=== PATIENT | female | born 1955 | race Caucasian/White ===

== ENCOUNTER → 2016-09-12 | Outpatient (CLI) | payer BC ==
[~2016-09-12] MED LIST: /METO25TAB PO; /WARF25TA PO; ACET650T12 PO; ADV100INH INH; ALBU0.084 NEB; ALDA25TA2 PO; COLA50CA3 PO; CYCL10TA3 PO; DEMA20TA PO; ENOX15SY SQ; LORA10TA2 PO; Lisinopril/HCTZ PO; NORCOTAB FT; OMEP40CA2 PO; SENN8.6C PO; SENO8.6T9 PO; VENTAER INH; VICO5TAB16 PO; XARE15TA PO
[2016-09-12 19:41] LABS: BASO % 0.4 % (0.0-1.0); EOS # 0.3 K/mm3 (0.0-0.50); LARGE UNSTAINED CELL # 0.1 K/mm3 (0.0-0.4); LARGE UNSTAINED CELL % 1.6 % (0.0-4.0); LYMPH # 2.2 K/mm3 (1.5-4.5); LYMPH % 32.2 % (24.0-44.0); MEAN CORPUSCULAR HEMOGLOBIN 30.2 pg (27.0-33.0); MEAN CORPUSCULAR HGB CONC 32.7 g/dl (32.0-36.5); MEAN CORPUSCULAR VOLUME 92.4 fl (80.0-96.0); MONO # 0.2 K/mm3 (0.0-0.8); MONO % 3.5 % (0.0-5.0); NEUTROPHILS % 58.3 % (36.0-66.0); PLATELET COUNT, AUTOMATED 244 k/mm3 (150-450); RED CELL DISTRIBUTION WIDTH 13.5 % (11.5-14.5); WHITE BLOOD COUNT 6.8 K/mm3 (4.0-10.0)
[2016-09-12 20:00] LABS: ALBUMIN 3.8 GM/DL (3.2-5.2); ALBUMIN/GLOBULIN RATIO 1.03 (1.00-1.93); ALKALINE PHOSPHATASE 123 U/L (45-117); ALT/SGPT 14 U/L (12-78); ANION GAP 10 MEQ/L (8-16); AST/SGOT 16 U/L (15-37); BILIRUBIN,TOTAL 0.3 MG/DL (0.2-1.0); BLOOD UREA NITROGEN 13 MG/DL (7-18); CALCIUM LEVEL 8.9 MG/DL (8.5-10.1); CARBON DIOXIDE LEVEL 27 MEQ/L (21-32); CHLORIDE LEVEL 103 MEQ/L (98-107); CREATININE FOR GFR 0.59 MG/DL (0.55-1.02); FERRITIN 12 NG/ML (8-252); GLOMERULAR FILTRATION RATE > 60.0 (>51); GLUCOSE, FASTING 83 MG/DL (70-105); PERCENT SATURATION 10.4 % (13.2-37.4); POTASSIUM SERUM 4.1 MEQ/L (3.5-5.1); SODIUM LEVEL 140 MEQ/L (136-145); TOTAL IRON BINDING CAPACITY 471 UG/DL (250-450); TOTAL PROTEIN 7.5 GM/DL (6.4-8.2)
[2016-09-12 20:07] LABS: VITAMIN B12 LEVEL > 2000 PG/ML (247-911)
[2016-09-13 10:46] LABS: PRETREATED FOLATE FOR RBCFOL 14.9 NG/ML
== END ==
LOC: M WUC 17:11
PROVIDERS: ATTEND Surgery
DX: K91.2 Postsurgical malabsorption, not elsewhere classified (principal); E55.9 Vitamin D deficiency, unspecified; Z98.84 Bariatric surgery status

== ENCOUNTER → 2017-04-19 | Outpatient (CLI) | payer BC ==
[2017-04-19 20:02] LABS: BASO # 0.1 10^3/uL (0.0-0.2); EOS # 0.4 10^3/uL (0.0-0.50); EOS % 5.2 % (0.0-3.0); IMMATURE GRANULOCYTE % 0.1 % (0-0); LYMPH # 2.7 10^3/uL (1.5-4.5); LYMPH % 37.7 % (24.0-44.0); MEAN CORPUSCULAR HEMOGLOBIN 30.4 pg (27.0-33.0); MEAN CORPUSCULAR HGB CONC 33.1 g/dl (32.0-36.5); MEAN CORPUSCULAR VOLUME 91.8 fl (80.0-96.0); MONO # 0.4 10^3/uL (0.0-0.8); MONO % 5.6 % (0.0-5.0); NEUTROPHILS # 3.6 10^3/uL (1.8-7.7); NEUTROPHILS % 50.4 % (36.0-66.0); PLATELET COUNT, AUTOMATED 246 10^3/uL (150-450); RED CELL DISTRIBUTION WIDTH 13.2 % (11.5-14.5); WHITE BLOOD COUNT 7.1 10^3/uL (4.0-10.0)
[2017-04-19 20:13] LABS: ADD MORPHOLOGY? NO
[2017-04-19 20:37] LABS: VITAMIN B12 LEVEL > 2000 PG/ML (247-911)
[2017-04-19 20:40] LABS: ALBUMIN 3.9 GM/DL (3.2-5.2); ALBUMIN/GLOBULIN RATIO 1.08 (1.00-1.93); ALKALINE PHOSPHATASE 116 U/L (45-117); ALT/SGPT 21 U/L (12-78); ANION GAP 8 MEQ/L (8-16); AST/SGOT 13 U/L (15-37); BILIRUBIN,TOTAL 0.4 MG/DL (0.2-1.0); BLOOD UREA NITROGEN 12 MG/DL (7-18); CALCIUM LEVEL 9.3 MG/DL (8.5-10.1); CARBON DIOXIDE LEVEL 28 MEQ/L (21-32); CHLORIDE LEVEL 102 MEQ/L (98-107); CREATININE FOR GFR 0.55 MG/DL (0.55-1.02); FERRITIN 25 NG/ML (8-252); GLOMERULAR FILTRATION RATE > 60.0 (>51); GLUCOSE, FASTING 88 MG/DL (70-105); MAGNESIUM LEVEL 2.1 MG/DL (1.8-2.4); PHOSPHORUS LEVEL 3.5 MG/DL (2.5-4.9); POTASSIUM SERUM 3.8 MEQ/L (3.5-5.1); SODIUM LEVEL 138 MEQ/L (136-145); TOTAL PROTEIN 7.5 GM/DL (6.4-8.2)
[2017-04-21 12:25] LABS: PRETREATED FOLATE FOR RBCFOL 16.3 NG/ML
== END ==
LOC: M WUC 18:25
PROVIDERS: ATTEND Surgery
DX: K91.2 Postsurgical malabsorption, not elsewhere classified (principal); E55.9 Vitamin D deficiency, unspecified; Z98.84 Bariatric surgery status

== ENCOUNTER → 2018-03-22 | Outpatient (CLI) | payer BC | LOC: M RAD 12:06 | DX: N95.0 Postmenopausal bleeding (principal) ==

== ENCOUNTER 2018-08-09 10:27 | Emergency (ER) | payer BC ==
[~2018-08-09] VITALS: Ht 160 cm; Wt 120.5 kg
--- NOTE | 2018-08-09 11:54 | REP ---
Duplex extremity venous ultrasound: Bilateral lower extremity. History: Lower extremity pain. History of clots. Findings: The deep veins are anechoic and fully compressible from the groin to the popliteal fossa in the left and right lower extremity. Color flow imaging is homogeneous. Spectral Doppler interrogation demonstrates intact respiratory variation in flow and normal manual augmentation of flow. There is no evidence of deep vein thrombosis. Impression: Negative bilateral lower extremity duplex venous ultrasound. No evidence of deep vein thrombosis. Electronically Signed by Mack Cardenas MD 08/09/2018 11:47 A
[2018-08-09 14:08] VITALS: BP 104/59
== END 2018-08-09 14:16 | disposition home or self-care (01) ==
LOC: M ED 10:27
DX: I87.2 Venous insufficiency (chronic) (peripheral) (principal); R60.9 Edema, unspecified; I48.91 Unspecified atrial fibrillation; I73.9 Peripheral vascular disease, unspecified; I25.10 Atherosclerotic heart disease of native coronary artery without angina pectoris; M50.30 Other cervical disc degeneration, unspecified cervical region; Z86.718 Personal history of other venous thrombosis and embolism; Z79.899 Other long term (current) drug therapy; Z79.01 Long term (current) use of anticoagulants; Z87.891 Personal history of nicotine dependence

== ENCOUNTER 2018-11-21 22:44 | Emergency (ER) | payer BC ==
[~2018-11-21] VITALS: Ht 160 cm; Wt 120.5 kg
[~2018-11-21 22:44] MED LIST changes: -/METO25TAB PO; -/WARF25TA PO; +COUM1TAB18 PO; -ENOX15SY SQ; +LOVE0.8I3 SQ; +METO1TAB87 PO
[2018-11-21] MEDS ORDERED: CVS1TAB55 PO (22:56)
[2018-11-21] MEDS ORDERED: SM M250T PO (22:56)
[2018-11-21] MEDS ORDERED: ELIQ5TAB PO (22:56)
[2018-11-21] MEDS ORDERED: VITA50005 PO (22:56)
[2018-11-21] MEDS ORDERED: B COTAB3 PO (22:56)
[2018-11-21 23:19] LABS: BASO # 0.1 10^3/uL (0.0-0.2); BASO % 0.8 % (0.0-1.0); EOS # 0.5 10^3/uL (0.0-0.50); HEMATOCRIT 40.3 % (36.0-47.0); HEMOGLOBIN 13.2 g/dl (12.0-15.5); LYMPH # 1.8 10^3/uL (1.5-4.5); LYMPH % 28.5 % (24.0-44.0); MEAN CORPUSCULAR HEMOGLOBIN 29.9 pg (27.0-33.0); MEAN CORPUSCULAR HGB CONC 32.8 g/dl (32.0-36.5); MEAN CORPUSCULAR VOLUME 91.4 fl (80.0-96.0); MONO # 0.5 10^3/uL (0.0-0.8); MONO % 7.8 % (0.0-5.0); NEUTROPHILS # 3.6 10^3/uL (1.8-7.7); NEUTROPHILS % 55.6 % (36.0-66.0); PLATELET COUNT, AUTOMATED 223 10^3/uL (150-450); RED BLOOD COUNT 4.41 10^6/uL (4.00-5.40); WHITE BLOOD COUNT 6.4 10^3/uL (4.0-10.0)
[2018-11-21 23:58] LABS: BLOOD UREA NITROGEN 11 MG/DL (7-18); CALCIUM LEVEL 8.8 MG/DL (8.8-10.2); CARBON DIOXIDE LEVEL 29 MEQ/L (21-32); CHLORIDE LEVEL 107 MEQ/L (98-107); CPK CREATINE PHOSPHOKINASE 76 U/L (26-192); CREATININE FOR GFR 0.65 MG/DL (0.55-1.30); FREE T4 1.06 NG/DL (0.76-1.46); GLOMERULAR FILTRATION RATE > 60.0 (>45); GLUCOSE, FASTING 82 MG/DL (70-100); LIPASE 118 U/L (73-393); MB/CK RELATIVE INDEX 2.11 (< OR =4); POTASSIUM SERUM 4.2 MEQ/L (3.5-5.1); SODIUM LEVEL 143 MEQ/L (136-145); TROPONIN I < 0.02 NG/ML (< 0.10)
[2018-11-22 00:22] LABS: MAGNESIUM LEVEL 2.1 MG/DL (1.8-2.4)
[2018-11-22 00:39] VITALS: BP 104/55
--- NOTE | 2018-11-22 01:41 | REP ---
Clinical: Acute chest pain . Comparison: 07/18/2013 . Technique: PA and lateral. Findings: The mediastinum and cardiac silhouette are normal. The lung beverly are clear and without acute consolidation, effusion, or pneumothorax. The skeletal structures are intact and normal. Impression: 1. No acute cardiopulmonary process. Electronically Signed by Dante Edwards MD 11/22/2018 01:32 A
--- NOTE | 2018-11-23 07:10 | ECGEPIP ---
Stationary ECG Study 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
== END 2018-11-22 00:42 | disposition home or self-care (01) ==
LOC: M ED 22:44
DX: I48.0 Paroxysmal atrial fibrillation (principal); I10 Essential (primary) hypertension; E66.8 Other obesity; I73.9 Peripheral vascular disease, unspecified; Z98.84 Bariatric surgery status; Z86.711 Personal history of pulmonary embolism; Z79.899 Other long term (current) drug therapy; Z79.01 Long term (current) use of anticoagulants; Z88.0 Allergy status to penicillin

== ENCOUNTER 2019-01-11 12:33 | Day surgery (SDC) | payer BC ==
[~2019-01-11] VITALS: Ht 160 cm; Wt 119.7 kg
[~2019-01-11 12:33] MED LIST changes: +ACET1TAB55 PO; +B COTAB3 PO; +BIOT10TA2 PO; +CALC600T60 PO; +CVS1TAB55 PO; +CYCL10TA PO; +ELIQ5TAB PO; +HYDR-2807 PO; +LORA-674 PO; +MAGN1CAP PO; +MULTCAP PO; +OMEP-221 PO; +POTA1TAB23 PO; +SENN1TAB8 PO; +SM M250T PO; +SPIR-10 PO; +TORS10TA3 PO; +VITA50005 PO
[2019-01-11] MEDS: NS 1,000 ML IV ONE (12:48)
[2019-01-11] MEDS ORDERED: PROPOFOL 500 MG/50 ML VIAL As Ordered ONE (13:18)
[2019-01-11] MEDS ORDERED: LIDOCAINE 2% INJ 100 MG/5 ML SDV (FOR ANES.) As Ordered ONE (13:18)
[2019-01-11] MEDS ORDERED: fentaNYL 100 MCG/2 ML INJECTION (J3010) As Ordered ONE (13:18)
--- NOTE | 2019-01-11 14:38 | ROOR ---
Patient Name: Katina Orosco Procedure Date: 01/11/2019 2:21 PM Date of : 1955 Age: 63 Room: [facility] Gender: Female Note Status: Finalized Procedure: Upper GI endoscopy Indications: Family history of gastric cancer Providers: Alfonso Araiza MD Referring MD: Glenis Galloway NP Requesting Provider: Medicines: Monitored Anesthesia Care Complications: No immediate complications. Procedure: Pre-Anesthesia Assessment: - The heart rate, respiratory rate, oxygen saturations, blood pressure, adequacy of pulmonary ventilation, and response to care were monitored throughout the procedure. The Endoscope was introduced through the mouth, and advanced to the second part of duodenum. The upper GI endoscopy was accomplished without difficulty. The patient tolerated the procedure well. Findings: The Z-line was regular and was found 40 cm from the incisors. Evidence of a gastric bypass was found. A gastric pouch with a small size was found. The staple line appeared intact. The gastrojejunal anastomosis was characterized by healthy appearing mucosa. The exam was otherwise without abnormality. Impression: - Z-line regular, 40 cm from the incisors. - Gastric bypass with a small-sized pouch and intact staple line. Gastrojejunal anastomosis characterized by healthy appearing mucosa. - The examination was otherwise normal. - No specimens collected. - The examination was otherwise normal. Recommendation: - Patient has a contact number available for emergencies. The signs and symptoms of potential delayed complications were discussed with the patient. Return to normal activities tomorrow. Written discharge instructions were provided to the patient. - Discharge patient to home. - Follow an antireflux regimen. - Continue present medications. - Return to referring physician. - Repeat upper endoscopy in 5 years for surveillance. - The findings and recommendations were discussed with the patient. Alfonso Araiza MD Alfonso Araiza MD 01/11/2019 2:38:11 PM Electronically signed by Alfonso Araiza MD Number of Addenda: 0 Note Initiated On: 01/11/2019 2:21 PM Estimated Blood Loss: Estimated blood loss: none.
--- NOTE | 2019-01-11 14:57 | ROOR ---
Patient Name: Katina Orosco Procedure Date: 01/11/2019 2:23 PM Date of : 1955 Age: 63 Room: [facility] Gender: Female Note Status: Finalized Procedure: Total Colonoscopy to Cecum Indications: Screening for colorectal malignant neoplasm Providers: Alfonso Araiza MD Referring MD: Glenis Galloway NP Requesting Provider: Medicines: Monitored Anesthesia Care Complications: No immediate complications. Procedure: Pre-Anesthesia Assessment: - The heart rate, respiratory rate, oxygen saturations, blood pressure, adequacy of pulmonary ventilation, and response to care were monitored throughout the procedure. The Colonoscope was introduced through the anus and advanced to the cecum, identified by appendiceal orifice and ileocecal valve. The colonoscopy was performed without difficulty. The patient tolerated the procedure well. The quality of the bowel preparation was excellent. Findings: The perianal and digital rectal examinations were normal. Non-bleeding internal hemorrhoids were found during retroflexion. The hemorrhoids were small and Grade I (internal hemorrhoids that do not prolapse). Multiple small and large-mouthed diverticula were found in the recto-sigmoid colon, sigmoid colon and descending colon. The exam was otherwise without abnormality on direct and retroflexion views. Impression: - Non-bleeding internal hemorrhoids. - Diverticulosis in the recto-sigmoid colon, in the sigmoid colon and in the descending colon. - The examination was otherwise normal on direct and retroflexion views. - No specimens collected. - The exam was otherwise normal to the cecum. Recommendation: - Patient has a contact number available for emergencies. The signs and symptoms of potential delayed complications were discussed with the patient. Return to normal activities tomorrow. Written discharge instructions were provided to the patient. - High fiber diet. - Discharge patient to home. - Continue present medications. - Repeat colonoscopy in 10 years for screening purposes. - Return to referring physician. - The findings and recommendations were discussed with the patient's family. Alfonso Araiza MD Alfonso Araiza MD 01/11/2019 2:56:27 PM Electronically signed by Alfonso Araiza MD Number of Addenda: 0 Note Initiated On: 01/11/2019 2:23 PM Estimated Blood Loss: Estimated blood loss: none.
[2019-01-11 15:15] VITALS: BP 131/67
== END 2019-01-11 15:18 | disposition home or self-care (01) ==
LOC: M OPP 12:33
PROVIDERS: ATTEND Internal Medicine Gastroenterology
DX: K64.0 First degree hemorrhoids (principal); K57.30 Diverticulosis of large intestine without perforation or abscess without bleeding; Z12.11 Encounter for screening for malignant neoplasm of colon; Z80.0 Family history of malignant neoplasm of digestive organs; Z98.84 Bariatric surgery status
CPT/HCPCS: 43235; 45378; J3010

== ENCOUNTER → 2019-04-22 | Outpatient (REF) | payer BC ==
[~2019-04-22] MED LIST changes: -CVS1TAB55 PO; +CVSTAB PO
[2019-04-22 13:58] LABS: IRON (FE) 96 UG/DL (50-170); VITAMIN B12 LEVEL > 2000 PG/ML (247-911)
== END ==
LOC: M LAB REF 13:18
PROVIDERS: ATTEND Nurse Practitioner Adult Health
DX: Z98.84 Bariatric surgery status (principal)

== ENCOUNTER 2019-11-06 19:04 | Emergency (ER) | payer BC ==
[~2019-11-06] VITALS: Ht 160 cm; Wt 125.0 kg
[~2019-11-06 19:04] MED LIST changes: +CYCL-707 PO; -CYCL10TA PO; +SENN-80 PO; -SENN1TAB8 PO
[2019-11-06] MEDS ORDERED: ALBU8.5H (19:29)
[2019-11-06] MEDS ORDERED: FLUT1BLS (19:29)
[2019-11-06 20:22] LABS: APPEARANCE, URINE CLEAR (CLEAR); BACTERIA, URINE AUTO NEGATIVE (NEGATIVE); BILIRUBIN, URINE AUTO NEGATIVE (NEGATIVE); BLOOD, URINE BLOOD 1+ (NEGATIVE); COLOR, URINE COLORLESS (YELLOW); GLUCOSE, URINE (UA) AUTO NEGATIVE (NEGATIVE); KETONE, URINE AUTO NEGATIVE (NEGATIVE); LEUKOCYTE ESTERASE, URINE AUTO NEGATIVE (NEGATIVE); MUCUS, URINE SMALL (NEGATIVE); NITRITE, URINE AUTO NEGATIVE (NEGATIVE); PROTEIN, URINE AUTO NEGATIVE (NEGATIVE); RBC, URINE AUTO 0 /HPF (0-3); SPECIFIC GRAVITY URINE AUTO 1.001 (1.002-1.035); SQUAMOUS EPITHELIAL CELL UR AU 0 /HPF (0-6); UROBILINOGEN, URINE AUTO 0.2 mg/dL (0.0-2.0); WBC, URINE AUTO 0 /HPF (0-3)
[2019-11-06 20:24] LABS: BASO # 0.1 10^3/uL (0.0-0.2); BASO % 0.8 % (0.0-1.0); EOS # 0.3 10^3/uL (0.0-0.5); EOS % 4.7 % (0.0-3.0); HEMATOCRIT 42.2 % (36.0-47.0); HEMOGLOBIN 13.9 g/dl (12.0-15.5); LYMPH # 1.6 10^3/uL (1.5-5.0); LYMPH % 26.1 % (24.0-44.0); MEAN CORPUSCULAR HEMOGLOBIN 30.2 pg (27.0-33.0); MEAN CORPUSCULAR HGB CONC 32.9 g/dl (32.0-36.5); MEAN CORPUSCULAR VOLUME 91.5 fl (80.0-96.0); MONO # 0.4 10^3/uL (0.0-0.8); MONO % 6.3 % (0.0-5.0); NEUTROPHILS # 3.7 10^3/uL (1.5-8.5); NEUTROPHILS % 61.8 % (36.0-66.0); PLATELET COUNT, AUTOMATED 226 10^3/uL (150-450); RED BLOOD COUNT 4.61 10^6/uL (4.00-5.40)
[2019-11-06 20:36] LABS: INR 1.15; PROTHROMBIN TIME 14.4 SECONDS (11.8-14.0)
[2019-11-06 20:37] LABS: PARTIAL THROMBOPLASTIN TIME 31.9 SECONDS (25.0-38.4)
[2019-11-06 20:59] LABS: ALBUMIN 3.8 GM/DL (3.2-5.2); ALT/SGPT 21 U/L (12-78); BILIRUBIN,DIRECT 0.2 MG/DL (0.0-0.2); BILIRUBIN,TOTAL 0.3 MG/DL (0.2-1.0); BLOOD UREA NITROGEN 13 MG/DL (7-18); CALCIUM LEVEL 9.5 MG/DL (8.8-10.2); CARBON DIOXIDE LEVEL 30 MEQ/L (21-32); CHLORIDE LEVEL 103 MEQ/L (98-107); CK-MB VALUE MASS 1.3 NG/ML (<3.6); CPK CREATINE PHOSPHOKINASE 81 U/L (26-192); CREATININE FOR GFR 0.64 MG/DL (0.55-1.30); GLOMERULAR FILTRATION RATE > 60.0 (>45); GLUCOSE, FASTING 102 MG/DL (70-100); NT-PRO BNP 184 PG/ML (<125); POTASSIUM SERUM 3.8 MEQ/L (3.5-5.1); SODIUM LEVEL 139 MEQ/L (136-145); THYROID STIMULATING HORMONE 0.838 uIU/ML (0.358-3.740); TOTAL PROTEIN 7.8 GM/DL (6.4-8.2); TROPONIN I < 0.02 NG/ML (< 0.10)
[2019-11-06 21:56] VITALS: BP 132/58
--- NOTE | 2019-11-07 01:19 | ECGEPIP ---
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
--- NOTE | 2019-11-07 03:35 | REP ---
Clinical: Chest pain. Comparison: 11/21/2018. Findings: Evaluation is limited by portable technique and underpenetration which accentuates the pulmonary vasculature and interstitium. Mediastinum and cardiac silhouette are normal. Subtle right lower lobe infiltrate is suspected. No effusion. No pneumothorax. Skeletal structures intact. Impression: Subtle right lower lobe infiltrate. Cannot definitively exclude mild interstitial edema. Electronically Signed by Dante Edwards MD 11/07/2019 03:26 A
--- NOTE | 2019-11-08 13:34 | ED PDOC ---
Post-Departure Follow-Up marian vela faxed cxr for fu. no fever, normal wbc doubt pneumonia. Kye Aaron MD Nov 08, 2019 13:34
== END 2019-11-06 21:57 | disposition home or self-care (01) ==
LOC: M ED 19:04
DX: R00.2 Palpitations (principal); E66.01 Morbid (severe) obesity due to excess calories; Z88.0 Allergy status to penicillin; Z98.84 Bariatric surgery status; Z86.711 Personal history of pulmonary embolism

== ENCOUNTER 2020-03-14 12:12 | Emergency (ER) | payer BC ==
[~2020-03-14] VITALS: Ht 160 cm; Wt 126.7 kg
[~2020-03-14 12:12] MED LIST changes: +ALBU8.5H; +FLUT1BLS; -HYDR-2807 PO; +HYDR-4433 PO
[2020-03-14] MEDS ORDERED: ACETAMINOPHEN 325 MG TAB PO ONE (12:30)
[2020-03-14 14:02] VITALS: BP 110/67
--- NOTE | 2020-04-14 09:48 | REP ---
LEFT RIB SERIES CLINICAL: Trauma, fall. TECHNIQUE: Frontal view of the chest with four views of the left hemithorax. FINDINGS: A very subtle nondisplaced fracture along the anterolateral margin of the left 8th rib cannot be excluded. The remainder of the examination appears normal. No further traumatic findings are appreciated. The underlying left hemithorax appears clear. IMPRESSION: Cannot exclude very subtle left lateral 8th rib fracture. Otherwise normal examination. MTDD
--- NOTE | 2020-04-14 09:49 | REP ---
LEFT HUMERUS CLINICAL: Trauma, fall. TECHNIQUE: AP and lateral views of the left humerus. FINDINGS: No acute fracture or dislocation. Skeletal structures, joint spaces, and surrounding soft tissues appear normal. IMPRESSION: Normal left humerus. No acute fracture or dislocation MTDD
== END 2020-03-14 14:04 | disposition home or self-care (01) ==
LOC: M ED 12:12
DX: S22.32XA Fracture of one rib, left side, initial encounter for closed fracture (principal); S40.012A Contusion of left shoulder, initial encounter; W01.0XXA Fall on same level from slipping, tripping and stumbling without subsequent striking against object, initial encounter; Y92.410 Unspecified street and highway as the place of occurrence of the external cause; I10 Essential (primary) hypertension; Z98.84 Bariatric surgery status; Z88.0 Allergy status to penicillin; Z79.899 Other long term (current) drug therapy; Z79.01 Long term (current) use of anticoagulants

== ENCOUNTER → 2020-05-25 | Outpatient (CLI) | payer BC ==
--- NOTE | 2020-05-26 02:29 | REP ---
INDICATION: SHOULDER PAIN COMPARISON: None. TECHNIQUE: Internal rotation, external rotation, and Y view. FINDINGS: Relatively mild/early moderate age related arthritic changes are appreciated. Findings include subtle cortical irregularity at the acromioclavicular joint as well as decreased subacromial space on external rotation view to approximately 3.5 mm. Subtle cortical irregularity along the calcified corticated glenoid rim with early osteophyte formation is suggested. The humeral head appears relatively intact/normal. No obvious loose bodies identified. IMPRESSION: Mild/early moderate age related arthritic changes. <Electronically signed by Dante Edwards > 05/26/20 [id number]
== END ==
LOC: M WUC 14:26
PROVIDERS: ATTEND Nurse Practitioner Adult Health
DX: M25.511 Pain in right shoulder (principal); Z98.84 Bariatric surgery status

== ENCOUNTER → 2020-06-01 | Outpatient (CLI) | payer BC ==
--- NOTE | 2020-06-02 03:09 | REP ---
INDICATION: PERSONAL HX OF OTHER RESPIRATORY ILLNESS COMPARISON: 11/21/2018 TECHNIQUE: PA and lateral. FINDINGS: The mediastinum and cardiac silhouette are normal. The lung beverly demonstrate chronic interstitial changes without acute consolidation, effusion, or pneumothorax. The skeletal structures are intact and normal. IMPRESSION: No acute cardiopulmonary process. <Electronically signed by Dante Edwards > 06/02/20 [id number]
== END ==
LOC: M WUC 14:47
PROVIDERS: ATTEND Nurse Practitioner Adult Health
DX: Z87.09 Personal history of other diseases of the respiratory system (principal); J84.9 Interstitial pulmonary disease, unspecified

== ENCOUNTER → 2020-07-24 | Outpatient (CLI) | payer BC ==
--- NOTE | 2020-07-24 08:21 | REP ---
INDICATION: OTHER NON SPECIFIC ABNORMAL FINDING OF LUNG FIELD COMPARISON: 07/18/2013 TECHNIQUE: Axial high-resolution noncontrast images from the thoracic inlet to the upper abdomen with coronal and sagittal reformations. This CT examination was performed using the following dose reduction techniques: Automated exposure control, adjustment of mA and/or kv according to the patient's size, and use of iterative reconstruction technique. FINDINGS: The bilateral lung beverly are well aerated and clear. No consolidation, suspicious nodule or mass lesion. No significant interstitial process or obvious underlying chronic pulmonary process is appreciated. No pleural effusion. No pneumothorax. Incidental note is made of a possible small 2.3 cm forming Bochdalek's hernia along the deep left posterior sulcus. Evaluation of the mediastinum demonstrates stable atherosclerotic changes to the thoracic aorta and mitral valve annulus without thoracic aortic aneurysm or cardiomegaly. No pericardial effusion. No obvious adenopathy. Incidental low-density nodule in the left thyroid lobe suggested. Surrounding musculoskeletal structures are intact and without acute osseous abnormality. Evidence for old healed rib fractures noted. Limited upper abdomen demonstrates prior gastric bypass surgery and cholecystectomy. IMPRESSION: 1. Lung beverly are clear and without evidence for acute or chronic pulmonary parenchymal process. Very small forming left posterior Bochdalek's hernia suggested. <Electronically signed by Dante Edwards > 07/24/20 0818
== END ==
LOC: M RAD 07:13
PROVIDERS: ATTEND Physician Assistant
DX: R91.8 Other nonspecific abnormal finding of lung field (principal)

== ENCOUNTER → 2020-08-25 | Outpatient (CLI) | payer BC ==
[~2020-08-25] MED LIST changes: +METHACHOLINE KIT (J7674) INH ONE
--- NOTE | 2020-08-25 08:20 | PFTRPT ---
Height: 63.25 Inches Weight: 275.00 Lbs BSA: 2.22 Diagnosis: R06.00 DATE: 08/25/2020 ORDERED BY: KARMEN Polanco QUALITY: Study of excellent technical quality. PROCEDURE: Under protocol, methacholine was administered. At a dose of 2.5 mg or 13.875 CDUs, a 27% decline in the FEV1 was noted. PC of 0.83 is significant. Flow rates did return to baseline post bronchodilator administration. IMPRESSION: Positive methacholine challenge study. MTDD
== END ==
LOC: M CARPUL 07:30
PROVIDERS: ATTEND Physician Assistant
DX: R06.00 Dyspnea, unspecified (principal)
CPT/HCPCS: 94070; J7674

== ENCOUNTER → 2020-12-03 | Outpatient (CLI) | payer BC ==
[~2020-12-03] MED LIST changes: -METHACHOLINE KIT (J7674) INH ONE
--- NOTE | 2020-12-04 07:05 | REP ---
INDICATION: V COMPARISON: None. TECHNIQUE: Deng scale and color evaluation of the thyroid gland using the linear high frequency transducer. FINDINGS: The thyroid gland is enlarged and diffusely heterogeneous. Right thyroid lobe measures 4.5 x 2.2 x 1.7 cm with 6.7 x 5.1 x 5.9 mm midpole complex nodule, 6 x 8 x 8 mm hyperechoic midpole nodule, and smaller scattered somewhat poorly defined hypoechoic nodules up to roughly 3.5 mm. Left thyroid lobe measures 5.0 x 2.2 x 2.4 cm and includes 5.9 x 5.2 x 5.0 mm upper pole hypoechoic nodule, 10 x 8 x 7 mm hypoechoic midpole nodule and 19.8 x 18.7 x 34.9 mm complex vascular nodular lesion encompassing the mid to lower pole. Isthmus measures 5.9 mm in width. IMPRESSION: Heterogeneous gland with diffuse nonspecific nodules. The largest of which is noted in the left mid to lower lobe and is relatively indeterminate raising the possibility and suggestion for biopsy. <Electronically signed by Dante Edwards > 12/04/20 0701
== END ==
LOC: M RAD 14:21
PROVIDERS: ATTEND Nurse Practitioner Adult Health
DX: E04.1 Nontoxic single thyroid nodule (principal)

== ENCOUNTER → 2021-04-24 | Outpatient (REF) | payer BC ==
[2021-04-24 15:50] LABS: RSV AMPLIFICATION POSITIVE (NEGATIVE)
== END ==
LOC: M LAB REF 15:01
PROVIDERS: ATTEND Physician Assistant
DX: Z20.828 Contact with and (suspected) exposure to other viral communicable diseases (principal)

== ENCOUNTER → 2021-08-18 | Outpatient (REF) ==
[~2021-08-18] MED LIST changes: -OMEP-221 PO; +OMEP40CA5 PO
== END ==
LOC: M PLAIMG 13:54
PROVIDERS: ATTEND Internal Medicine
DX: Z00.00 Encounter for general adult medical examination without abnormal findings (principal)

== ENCOUNTER → 2021-11-26 | Outpatient (CLI) | payer BC | LOC: M WUC 14:22 | PROVIDERS: ATTEND Physician Assistant | DX: M25.471 Effusion, right ankle (principal); M19.071 Primary osteoarthritis, right ankle and foot ==

== ENCOUNTER 2022-01-17 09:24 | Inpatient (IN) | payer BC ==
[~2022-01-17] VITALS: Ht 160 cm; Wt 126.1 kg
[~2022-01-17 09:24] MED LIST changes: -ALBU8.5H; +ALBU8.5H INH
[2022-01-17] MEDS ORDERED: ADV250INH INH (09:36)
[2022-01-17 10:54] LABS: BASO % 0.3 % (0.0-1.0); EOS # 0.1 10^3/uL (0.0-0.5); EOS % 1.1 % (0.0-3.0); HEMATOCRIT 38.2 % (36.0-47.0); HEMOGLOBIN 12.2 g/dl (12.0-15.5); LYMPH # 1.3 10^3/uL (1.5-5.0); LYMPH % 17.6 % (24.0-44.0); MEAN CORPUSCULAR HEMOGLOBIN 29.5 pg (27.0-33.0); MEAN CORPUSCULAR HGB CONC 31.9 g/dl (32.0-36.5); MEAN CORPUSCULAR VOLUME 92.5 fl (80.0-96.0); MONO # 0.5 10^3/uL (0.0-0.8); MONO % 6.3 % (2.0-8.0); NEUTROPHILS # 5.6 10^3/uL (1.5-8.5); NEUTROPHILS % 74.4 % (36.0-66.0); PLATELET COUNT, AUTOMATED 190 10^3/uL (150-450); RED BLOOD COUNT 4.13 10^6/uL (4.00-5.40); WHITE BLOOD COUNT 7.5 10^3/uL (4.0-10.0)
[2022-01-17 11:40] LABS: ALBUMIN 3.5 GM/DL (3.2-5.2); ALT/SGPT 18 U/L (12-78); BILIRUBIN,DIRECT 0.2 MG/DL (0.0-0.2); BILIRUBIN,TOTAL 0.5 MG/DL (0.2-1.0); BLOOD UREA NITROGEN 7 MG/DL (7-18); CARBON DIOXIDE LEVEL 29 MEQ/L (21-32); CHLORIDE LEVEL 106 MEQ/L (98-107); CREATININE FOR GFR 0.66 MG/DL (0.55-1.30); GLOMERULAR FILTRATION RATE > 60.0 (>45); GLUCOSE, FASTING 96 MG/DL (70-100); LIPASE 60 U/L (73-393); POTASSIUM SERUM 4.1 MEQ/L (3.5-5.1); SODIUM LEVEL 140 MEQ/L (136-145); TOTAL PROTEIN 7.3 GM/DL (6.4-8.2)
[2022-01-17] MEDS ORDERED: ISOVUE-370 76% 100ML VIAL As Ordered ONE (12:02)
[2022-01-17] MEDS ORDERED: PIPERACILLIN/TAZOBACTAM SOD 3.375 GM in D5W MINI-BAG PLUS 50 ML IV ONE (12:40)
[2022-01-17] MEDS ORDERED: LR 1,000 ML IV SCH (12:45)
[2022-01-17] MEDS ORDERED: DRIS50003 PO (14:07)
[2022-01-17] MEDS ORDERED: MAGN500C2 PO (14:09)
[2022-01-17] MEDS ORDERED: EQL50TAB2 PO (14:09)
[2022-01-17] MEDS ORDERED: THERTAB52 PO (14:09)
[2022-01-17] MEDS ORDERED: MM S100C PO (14:09)
[2022-01-17] MEDS ORDERED: HOME MED LIST COMPLETE! XX SCH (14:10)
[2022-01-17] MEDS ORDERED: ONDANSETRON 4MG 2ML VIAL IV PRN (14:20)
[2022-01-17] MEDS ORDERED: ALBUTEROL SULFATE 2.5 MG/0.5 ML INH NEB SOLN NEB PRN (14:20)
[2022-01-17] MEDS ORDERED: MORPHINE 4 MG/ML 1ML VIAL/SYRINGE IV PRN (14:20)
[2022-01-17 14:21] LABS: RSV AMPLIFICATION NEGATIVE (NEGATIVE)
[2022-01-17 16:50] VITALS: BP 132/69
[2022-01-17] MEDS: PIPERACILLIN/TAZOBACTAM SOD 3.375 GM in D5W MINI-BAG PLUS 50 ML IV SCH (18:52)
[2022-01-17] MEDS: ADVAIR HFA 115/21MCG INHALER INH SCH (19:55)
[2022-01-17 20:00] VITALS: BP 129/66
[2022-01-17] MEDS ORDERED: OMEPRAZOLE 20MG CAP PO ONE (20:40)
[2022-01-17] MEDS ORDERED: PANTOPRAZOLE 40MG VIAL IV SCH (21:00)
[2022-01-17] MEDS: NORCO, ANEXSIA 5/325MG TABLET (HYDROcodone/ACETAMINOPHEN) PO PRN (21:21)
[2022-01-17] MEDS: CYCLOBENZAPRINE 10MG TABLET PO SCH (21:21)
[2022-01-17] MEDS: LR 1,000 ML IV SCH (21:22)
[2022-01-18] VITALS (8 sets, daily range): BP systolic 99–140; BP diastolic 50–80
[2022-01-18] MEDS: PIPERACILLIN/TAZOBACTAM SOD 3.375 GM in D5W MINI-BAG PLUS 50 ML IV SCH ×5 (00:40→22:20)
[2022-01-18 07:26] LABS: BASO % 0.7 % (0.0-1.0); EOS # 0.1 10^3/uL (0.0-0.5); EOS % 2.8 % (0.0-3.0); HEMOGLOBIN 10.8 g/dl (12.0-15.5); LYMPH # 1.1 10^3/uL (1.5-5.0); MEAN CORPUSCULAR HEMOGLOBIN 29.3 pg (27.0-33.0); MEAN CORPUSCULAR HGB CONC 31.8 g/dl (32.0-36.5); MEAN CORPUSCULAR VOLUME 92.4 fl (80.0-96.0); MONO # 0.3 10^3/uL (0.0-0.8); MONO % 7.2 % (2.0-8.0); NEUTROPHILS % 65.9 % (36.0-66.0); PLATELET COUNT, AUTOMATED 156 10^3/uL (150-450); RED BLOOD COUNT 3.68 10^6/uL (4.00-5.40); WHITE BLOOD COUNT 4.6 10^3/uL (4.0-10.0)
[2022-01-18] MEDS: ADVAIR HFA 115/21MCG INHALER INH SCH ×2 (07:27→20:46)
[2022-01-18 07:45] LABS: BLOOD UREA NITROGEN 6 MG/DL (7-18); CALCIUM LEVEL 8.8 MG/DL (8.8-10.2); CARBON DIOXIDE LEVEL 28 MEQ/L (21-32); CHLORIDE LEVEL 109 MEQ/L (98-107); CREATININE FOR GFR 0.57 MG/DL (0.55-1.30); GLOMERULAR FILTRATION RATE > 60.0 (>45); GLUCOSE, FASTING 97 MG/DL (70-100); POTASSIUM SERUM 3.9 MEQ/L (3.5-5.1); SODIUM LEVEL 144 MEQ/L (136-145)
[2022-01-18] MEDS: CYCLOBENZAPRINE 10MG TABLET PO SCH ×2 (07:57→21:00)
[2022-01-18] MEDS: NORCO, ANEXSIA 5/325MG TABLET (HYDROcodone/ACETAMINOPHEN) PO PRN ×2 (07:58→22:43)
[2022-01-18 08:04] LABS: INR 1.06; PROTHROMBIN TIME 14.2 SECONDS (12.7-14.5)
[2022-01-18 08:05] LABS: PARTIAL THROMBOPLASTIN TIME 36.5 SECONDS (25.9-37.0)
[2022-01-18] MEDS: LR 1,000 ML IV SCH ×3 (10:07→22:20)
[2022-01-18] MEDS ORDERED: MIDAZOLAM INJ 2MG/2ML VIAL (J2250 PER 1MG) As Ordered ONE (16:33)
[2022-01-18] MEDS ORDERED: fentaNYL 250 MCG/5 ML INJECTION As Ordered ONE (16:33)
[2022-01-18] MEDS ORDERED: ROCURONIUM BROMIDE 50 MG/5 ML VIAL As Ordered ONE (16:34)
[2022-01-18] MEDS ORDERED: LIDOCAINE 2% INJ 100 MG/5 ML SYRINGE As Ordered ONE (16:34)
[2022-01-18] MEDS ORDERED: BUPIVACAINE/EPIN 0.25% 30 ML VIAL As Ordered ONE (16:40)
[2022-01-18] MEDS ORDERED: LR 1,000 ML IV SCH (16:45)
[2022-01-18] MEDS ORDERED: ALBUTEROL SULFATE 2.5 MG/0.5 ML INH NEB SOLN INH PRN (16:45)
[2022-01-18] MEDS ORDERED: oxyCODONE 5MG TAB PO PRN (16:45)
[2022-01-18] MEDS ORDERED: MEPERIDINE INJ 25 MG/ML VIAL (J2175) IV PRN (16:45)
[2022-01-18] MEDS ORDERED: METOCLOPRAMIDE INJ 10MG/2ML VIAL (J2765 PER 1) IV PRN (16:45)
[2022-01-18] MEDS ORDERED: fentaNYL 100 MCG/2 ML INJECTION IV PRN (16:45)
[2022-01-18] MEDS ORDERED: ONDANSETRON 4MG 2ML VIAL IV PRN (16:45)
[2022-01-18] MEDS ORDERED: ACETAMINOPHEN 1000MG 100ML IV BTL (OFIRMEV) (J0131 PER 10MG) As Ordered ONE (17:46)
[2022-01-18] MEDS ORDERED: ZOSYN 3.375GM VIAL As Ordered ONE (18:30)
[2022-01-18] MEDS ORDERED: dexameTHASONE 4 MG/ML 1ML VIAL (J1100 PER 1MG) As Ordered ONE (18:57)
[2022-01-18] MEDS ORDERED: ONDANSETRON 4MG 2ML VIAL As Ordered ONE (18:57)
[2022-01-18] MEDS ORDERED: METOCLOPRAMIDE INJ 10MG/2ML VIAL (J2765 PER 1) As Ordered ONE (18:57)
[2022-01-18] MEDS ORDERED: SUGAMMADEX SODIUM 500 MG/5 ML VIAL (BRIDION) As Ordered ONE (18:57)
[2022-01-18] MEDS: HYDROMORPHONE HCL 0.5 MG/ 0.5 ML SYRINGE (J1170 PER 1) IV PRN ×3 (19:41→20:40)
[2022-01-19 00:25] VITALS: BP 142/75
[2022-01-19] MEDS: PIPERACILLIN/TAZOBACTAM SOD 3.375 GM in D5W MINI-BAG PLUS 50 ML IV SCH ×4 (01:16→18:05)
[2022-01-19 02:00] VITALS: BP 135/57
[2022-01-19 06:00] VITALS: BP 126/60
[2022-01-19 06:02] LABS: BASO % 0.2 % (0.0-1.0); HEMATOCRIT 34.1 % (36.0-47.0); HEMOGLOBIN 10.8 g/dl (12.0-15.5); LYMPH # 0.6 10^3/uL (1.5-5.0); LYMPH % 8.4 % (24.0-44.0); MEAN CORPUSCULAR HEMOGLOBIN 28.6 pg (27.0-33.0); MEAN CORPUSCULAR HGB CONC 31.7 g/dl (32.0-36.5); MEAN CORPUSCULAR VOLUME 90.5 fl (80.0-96.0); MONO # 0.3 10^3/uL (0.0-0.8); MONO % 4.8 % (2.0-8.0); NEUTROPHILS # 5.6 10^3/uL (1.5-8.5); NEUTROPHILS % 86.3 % (36.0-66.0); PLATELET COUNT, AUTOMATED 191 10^3/uL (150-450); RED BLOOD COUNT 3.77 10^6/uL (4.00-5.40); WHITE BLOOD COUNT 6.5 10^3/uL (4.0-10.0)
[2022-01-19 06:27] LABS: BLOOD UREA NITROGEN 9 MG/DL (7-18); CALCIUM LEVEL 8.6 MG/DL (8.8-10.2); CARBON DIOXIDE LEVEL 28 MEQ/L (21-32); CHLORIDE LEVEL 106 MEQ/L (98-107); CREATININE FOR GFR 0.55 MG/DL (0.55-1.30); GLOMERULAR FILTRATION RATE > 60.0 (>45); GLUCOSE, FASTING 123 MG/DL (70-100); SODIUM LEVEL 139 MEQ/L (136-145)
[2022-01-19] MEDS: NORCO, ANEXSIA 5/325MG TABLET (HYDROcodone/ACETAMINOPHEN) PO PRN ×3 (07:02→21:56)
[2022-01-19] MEDS: ADVAIR HFA 115/21MCG INHALER INH SCH ×2 (07:23→20:53)
[2022-01-19] MEDS: CYCLOBENZAPRINE 10MG TABLET PO SCH ×2 (09:00→21:56)
[2022-01-19 10:00] VITALS: BP 125/70
[2022-01-19] MEDS: SPIRONOLACTONE 25 MG TAB PO SCH (12:53)
[2022-01-19] MEDS: DOCUSATE SODIUM 100MG CAPSULE PO SCH ×2 (12:53→20:38)
[2022-01-19] MEDS: OMEPRAZOLE 20MG CAP PO SCH (12:54)
[2022-01-19] MEDS: LORATADINE 10 MG TAB PO SCH (12:54)
[2022-01-19 14:00] VITALS: BP 125/70
[2022-01-19 22:00] VITALS: BP 117/70
[2022-01-20] MEDS: PIPERACILLIN/TAZOBACTAM SOD 3.375 GM in D5W MINI-BAG PLUS 50 ML IV SCH ×2 (01:26→06:17)
[2022-01-20 05:56] LABS: BASO % 0.5 % (0.0-1.0); EOS # 0.1 10^3/uL (0.0-0.5); EOS % 1.5 % (0.0-3.0); HEMATOCRIT 37.3 % (36.0-47.0); LYMPH % 33.8 % (24.0-44.0); MEAN CORPUSCULAR HEMOGLOBIN 29.9 pg (27.0-33.0); MEAN CORPUSCULAR HGB CONC 32.2 g/dl (32.0-36.5); MONO # 0.4 10^3/uL (0.0-0.8); MONO % 6.5 % (2.0-8.0); NEUTROPHILS # 3.5 10^3/uL (1.5-8.5); NEUTROPHILS % 57.5 % (36.0-66.0); PLATELET COUNT, AUTOMATED 229 10^3/uL (150-450); RED BLOOD COUNT 4.01 10^6/uL (4.00-5.40)
[2022-01-20 06:00] VITALS: BP 120/71
[2022-01-20 06:16] LABS: BLOOD UREA NITROGEN 8 MG/DL (7-18); CALCIUM LEVEL 8.8 MG/DL (8.8-10.2); CARBON DIOXIDE LEVEL 30 MEQ/L (21-32); CHLORIDE LEVEL 108 MEQ/L (98-107); CREATININE FOR GFR 0.63 MG/DL (0.55-1.30); GLOMERULAR FILTRATION RATE > 60.0 (>45); GLUCOSE, FASTING 96 MG/DL (70-100); SODIUM LEVEL 143 MEQ/L (136-145)
[2022-01-20] MEDS: NORCO, ANEXSIA 5/325MG TABLET (HYDROcodone/ACETAMINOPHEN) PO PRN ×3 (06:27→22:04)
[2022-01-20] MEDS: CIPROFLOXACIN 500MG TABLET PO SCH ×2 (07:57→17:36)
[2022-01-20] MEDS: metroNIDAZOLE (FLAGYL) 500MG TABLET PO SCH ×3 (07:58→20:30)
[2022-01-20] MEDS: LORATADINE 10 MG TAB PO SCH (07:58)
[2022-01-20] MEDS: OMEPRAZOLE 20MG CAP PO SCH (07:59)
[2022-01-20] MEDS: DOCUSATE SODIUM 100MG CAPSULE PO SCH (07:59)
[2022-01-20] MEDS: CYCLOBENZAPRINE 10MG TABLET PO SCH ×2 (08:00→20:30)
[2022-01-20] MEDS: SPIRONOLACTONE 25 MG TAB PO SCH (08:00)
[2022-01-20] MEDS: ADVAIR HFA 115/21MCG INHALER INH SCH ×2 (08:10→19:35)
[2022-01-20] MEDS ORDERED: BISACODYL 5 MG TAB PO ONE (11:40)
[2022-01-20] MEDS: ENOXAPARIN 150MG/ML SYRINGE (J1650 PER 10MG) SC SCH ×2 (13:26→20:32)
[2022-01-20 14:00] VITALS: BP 110/66
[2022-01-20] MEDS: SENOKOT S TAB PO SCH (20:30)
[2022-01-20 22:00] VITALS: BP 127/76
[2022-01-21] MEDS: CIPROFLOXACIN 500MG TABLET PO SCH (05:54)
[2022-01-21] MEDS: metroNIDAZOLE (FLAGYL) 500MG TABLET PO SCH ×2 (05:54→13:13)
[2022-01-21 06:00] VITALS: BP 120/61
[2022-01-21 07:27] LABS: BASO % 0.7 % (0.0-1.0); EOS # 0.1 10^3/uL (0.0-0.5); EOS % 2.6 % (0.0-3.0); HEMOGLOBIN 10.5 g/dl (12.0-15.5); LYMPH # 1.4 10^3/uL (1.5-5.0); LYMPH % 31.1 % (24.0-44.0); MEAN CORPUSCULAR HEMOGLOBIN 29.2 pg (27.0-33.0); MEAN CORPUSCULAR HGB CONC 31.8 g/dl (32.0-36.5); MEAN CORPUSCULAR VOLUME 91.9 fl (80.0-96.0); MONO # 0.4 10^3/uL (0.0-0.8); MONO % 7.7 % (2.0-8.0); NEUTROPHILS # 2.6 10^3/uL (1.5-8.5); NEUTROPHILS % 57.7 % (36.0-66.0); PLATELET COUNT, AUTOMATED 197 10^3/uL (150-450); RED BLOOD COUNT 3.59 10^6/uL (4.00-5.40); WHITE BLOOD COUNT 4.5 10^3/uL (4.0-10.0)
[2022-01-21 07:53] LABS: BLOOD UREA NITROGEN 8 MG/DL (7-18); CALCIUM LEVEL 8.9 MG/DL (8.8-10.2); CARBON DIOXIDE LEVEL 29 MEQ/L (21-32); CHLORIDE LEVEL 109 MEQ/L (98-107); CREATININE FOR GFR 0.51 MG/DL (0.55-1.30); GLOMERULAR FILTRATION RATE > 60.0 (>45); GLUCOSE, FASTING 94 MG/DL (70-100); POTASSIUM SERUM 3.8 MEQ/L (3.5-5.1); SODIUM LEVEL 143 MEQ/L (136-145)
[2022-01-21] MEDS: OMEPRAZOLE 20MG CAP PO SCH (08:20)
[2022-01-21] MEDS: CYCLOBENZAPRINE 10MG TABLET PO SCH (08:20)
[2022-01-21] MEDS: LORATADINE 10 MG TAB PO SCH (08:20)
[2022-01-21] MEDS: SPIRONOLACTONE 25 MG TAB PO SCH (08:22)
[2022-01-21] MEDS: SENOKOT S TAB PO SCH (08:22)
[2022-01-21] MEDS: NORCO, ANEXSIA 5/325MG TABLET (HYDROcodone/ACETAMINOPHEN) PO PRN (08:22)
[2022-01-21] MEDS: ADVAIR HFA 115/21MCG INHALER INH SCH (08:30)
[2022-01-21] MEDS ORDERED: BISACODYL 5 MG TAB PO SCH (09:00)
[2022-01-21] MEDS ORDERED: TORSEMIDE 20 MG TAB PO SCH (09:00)
[2022-01-21] MEDS: ENOXAPARIN 150MG/ML SYRINGE (J1650 PER 10MG) SC SCH (10:15)
[2022-01-21] MEDS ORDERED: CIPR-249 PO (12:31)
[2022-01-21] MEDS ORDERED: METR-265 PO (12:31)
[2022-01-21] MEDS ORDERED: COLA100C5 PO (12:31)
[2022-01-21] MEDS ORDERED: SENN-80 PO (12:31)
== END 2022-01-21 14:05 | disposition home or self-care (01) | DRG 225 ==
LOC: M ED 09:24 → M ED INP 13:06 → ENRESERV 15:55 → M MS5PR 17:43
PROVIDERS: ADMIT Internal Medicine Nephrology; ATTEND Internal Medicine Nephrology
PROC: 8E0W4CZ Robotic Assisted Procedure of Trunk Region, Percutaneous Endoscopic Approach (ICD-10-PCS; 2022-01-18)
PROC: 0DTJ4ZZ Resection of Appendix, Percutaneous Endoscopic Approach (ICD-10-PCS; principal; 2022-01-18 15:00)
DX: K35.80 Unspecified acute appendicitis (principal); E66.01 Morbid (severe) obesity due to excess calories; E55.9 Vitamin D deficiency, unspecified; I48.91 Unspecified atrial fibrillation; Z86.711 Personal history of pulmonary embolism; Z98.84 Bariatric surgery status; K21.9 Gastro-esophageal reflux disease without esophagitis; J45.909 Unspecified asthma, uncomplicated; M43.22 Fusion of spine, cervical region; Z90.49 Acquired absence of other specified parts of digestive tract; Z87.891 Personal history of nicotine dependence; I87.8 Other specified disorders of veins; G89.29 Other chronic pain; Z79.01 Long term (current) use of anticoagulants; Z79.51 Long term (current) use of inhaled steroids; Z79.899 Other long term (current) drug therapy; Z88.0 Allergy status to penicillin; Z20.822 Contact with and (suspected) exposure to COVID-19; M16.0 Bilateral primary osteoarthritis of hip; M17.0 Bilateral primary osteoarthritis of knee; M19.011 Primary osteoarthritis, right shoulder; M19.012 Primary osteoarthritis, left shoulder; Z79.891 Long term (current) use of opiate analgesic; L30.9 Dermatitis, unspecified; K59.00 Constipation, unspecified

== ENCOUNTER → 2022-06-29 | Outpatient (REF) | payer BC ==
[~2022-06-29] MED LIST changes: +ADV250INH INH; +CIPR-249 PO; +COLA100C5 PO; +DRIS50003 PO; +EQL50TAB2 PO; +MAGN500C2 PO; +METR-265 PO; +MM S100C PO; +THERTAB52 PO
== END ==
LOC: M LAB REF 16:27
PROVIDERS: ATTEND Nurse Practitioner Adult Health
DX: Z98.84 Bariatric surgery status (principal)

== ENCOUNTER 2023-05-22 14:49 | Emergency (ER) | payer BC ==
[~2023-05-22 14:49] MED LIST changes: +LORA-1041 PO; -LORA-674 PO; +SENN-186 PO; -SENN-80 PO
[2023-05-22 14:51] VITALS: TEMP 96.7
[2023-05-22 16:37] LABS: BASO # 0.1 10^3/uL (0.0-0.2); BASO % 0.9 % (0.0-1.0); EOS # 0.3 10^3/uL (0.0-0.5); EOS % 4.7 % (0.0-3.0); HEMATOCRIT 37.7 % (36.0-47.0); HEMOGLOBIN 12.3 g/dl (12.0-15.5); LYMPH # 1.6 10^3/uL (1.5-5.0); MEAN CORPUSCULAR HEMOGLOBIN 29.6 pg (27.0-33.0); MEAN CORPUSCULAR HGB CONC 32.6 g/dl (32.0-36.5); MEAN CORPUSCULAR VOLUME 90.6 fl (80.0-96.0); MONO # 0.4 10^3/uL (0.0-0.8); MONO % 6.4 % (2.0-8.0); NEUTROPHILS # 3.3 10^3/uL (1.5-8.5); NEUTROPHILS % 58.8 % (36.0-66.0); PLATELET COUNT, AUTOMATED 249 10^3/uL (150-450); RED BLOOD COUNT 4.16 10^6/uL (4.00-5.40); WHITE BLOOD COUNT 5.6 10^3/uL (4.0-10.0)
[2023-05-22 16:50] LABS: INR 1.15; PROTHROMBIN TIME 14.4 SECONDS (12.5-14.5)
[2023-05-22 16:51] LABS: PARTIAL THROMBOPLASTIN TIME 28.2 SECONDS (24.8-34.2)
[2023-05-22] MEDS: METOPROLOL 5 MG/5 ML VIAL IV SCH ×3 (16:51→17:16)
[2023-05-22 17:05] LABS: CK-MB VALUE MASS 1.1 NG/ML (<3.6)
[2023-05-22 17:07] LABS: LIPASE 26 U/L (12-53)
[2023-05-22 17:08] LABS: CPK CREATINE PHOSPHOKINASE 69 U/L (34-145); MB/CK RELATIVE INDEX 1.59 (< OR =4)
[2023-05-22 17:09] LABS: ALBUMIN 3.5 G/DL (3.2-5.2); ALKALINE PHOSPHATASE 100 U/L (46-116); ALT/SGPT 11 U/L (7.0-40); AST/SGOT 17 U/L (<34); BILIRUBIN,DIRECT 0.1 MG/DL (<0.4); BILIRUBIN,TOTAL 0.3 MG/DL (0.3-1.2); BLOOD UREA NITROGEN 10 MG/DL (9-23); CALCIUM LEVEL 8.9 MG/DL (8.3-10.6); CARBON DIOXIDE LEVEL 26 MMOL/L (20-31); CHLORIDE LEVEL 105 MMOL/L (98-107); CREATININE FOR GFR 0.49 MG/DL (0.55-1.30); FREE T4 1.15 NG/DL (0.89-1.76); GLOMERULAR FILTRATION RATE > 60.0 (>45); GLUCOSE, FASTING 97 MG/DL (74-106); MAGNESIUM LEVEL 1.9 MG/DL (1.8-2.4); PHOSPHORUS LEVEL 3.8 MG/DL (2.4-5.1); SODIUM LEVEL 141 MMOL/L (136-145); TOTAL PROTEIN 7.1 G/DL (5.7-8.2)
[2023-05-22 17:11] LABS: THYROID STIMULATING HORMONE 0.702 uIU/ML (0.55-4.78)
[2023-05-22] MEDS ORDERED: ISOVUE-370 76% 100ML VIAL As Ordered ONE (17:20)
[2023-05-22 17:56] LABS: CK-MB VALUE MASS 1.6 NG/ML (<3.6)
[2023-05-22 17:57] LABS: MB/CK RELATIVE INDEX 2.35 (< OR =4)
[2023-05-22 20:20] LABS: CK-MB VALUE MASS 1.3 NG/ML (<3.6)
[2023-05-22 20:23] LABS: MB/CK RELATIVE INDEX 2.09 (< OR =4)
[2023-05-22 20:45] VITALS: BP 111/56; O2SAT 98
[2023-05-22] MEDS ORDERED: METOPROLOL TART 25 MG TABLET PO ONE (20:55)
[2023-05-22] MEDS ORDERED: METO25TA4 PO (20:57)
[2023-05-22 20:58] VITALS: BP 111/56
== END 2023-05-22 21:10 | disposition home or self-care (01) ==
LOC: M ED 14:49
DX: I48.91 Unspecified atrial fibrillation (principal); J45.909 Unspecified asthma, uncomplicated; Z86.711 Personal history of pulmonary embolism; R01.1 Cardiac murmur, unspecified; Z87.891 Personal history of nicotine dependence; Z98.84 Bariatric surgery status; Z88.0 Allergy status to penicillin; Z79.01 Long term (current) use of anticoagulants; Z79.899 Other long term (current) drug therapy; Z79.51 Long term (current) use of inhaled steroids
CPT/HCPCS: 71045; 71275; 80048; 80076; 82550; 82553; 83690; 83735; 83880; 84100; 84439; 84443; 84484; 85025; 85610; 85730; 93005; 93041; 94760; 96374; 99285; Q9967

== ENCOUNTER → 2023-12-12 | Outpatient (REF) | payer BC ==
[~2023-12-12] MED LIST changes: +METO25TA4 PO
[2023-12-12 18:40] LABS: IRON (FE) 20 UG/DL (50-170); PERCENT SATURATION 5.2 % (13.2-45.0); PHOSPHORUS LEVEL 3.5 MG/DL (2.4-5.1); TOTAL IRON BINDING CAPACITY 381 UG/DL (250-425)
[2023-12-12 18:45] LABS: FERRITIN 18.8 NG/ML (7.3-270.7); FOLATE 14.5 NG/ML (>5.4); TOTAL 25(OH) VITAMIN D 76.4 NG/ML (20.0-100.0)
[2023-12-12 18:47] LABS: VITAMIN B12 LEVEL > 2000 PG/ML (211-911)
== END ==
LOC: M LAB REF 16:45
PROVIDERS: ATTEND Nurse Practitioner Adult Health
DX: Z98.84 Bariatric surgery status (principal)

== ENCOUNTER → 2023-12-21 | Outpatient (CLI) | payer BC | LOC: M RAD 12:41 | PROVIDERS: ATTEND Surgery | DX: E04.2 Nontoxic multinodular goiter (principal) ==

== ENCOUNTER 2024-04-17 13:04 | Day surgery (SDC) | payer BC ==
[~2024-04-17] VITALS: Ht 157.5 cm; Wt 116.6 kg
[~2024-04-17 13:04] MED LIST changes: +DIGO0.123 PO; +IRON65TA2 PO
[2024-04-17] MEDS: NS 1,000 ML IV ONE (14:13)
[2024-04-17] MEDS ORDERED: propofoL 200 MG/20 ML VIAL As Ordered ONE (15:02)
[2024-04-17] MEDS ORDERED: LIDOCAINE 2% 100MG/5ML SDV (FOR ANES.) As Ordered ONE (15:02)
[2024-04-17 15:05] VITALS: TEMP 98.3
[2024-04-17 15:20] VITALS: BP 123/61; O2SAT 98
== END 2024-04-17 15:26 | disposition home or self-care (01) ==
LOC: M OPP 13:04
PROVIDERS: ATTEND Internal Medicine Gastroenterology
DX: R12 Heartburn (principal); K29.70 Gastritis, unspecified, without bleeding; K44.9 Diaphragmatic hernia without obstruction or gangrene; Z90.49 Acquired absence of other specified parts of digestive tract; Z98.84 Bariatric surgery status; I48.91 Unspecified atrial fibrillation; D64.9 Anemia, unspecified; J45.909 Unspecified asthma, uncomplicated; Z86.711 Personal history of pulmonary embolism; Z79.899 Other long term (current) drug therapy; Z79.01 Long term (current) use of anticoagulants; Z88.0 Allergy status to penicillin; Z80.0 Family history of malignant neoplasm of digestive organs; Z80.8 Family history of malignant neoplasm of other organs or systems; Z80.1 Family history of malignant neoplasm of trachea, bronchus and lung

== ENCOUNTER → 2024-07-02 | Outpatient (REF) | payer BC ==
[~2024-07-02] MED LIST changes: -ADV250INH INH; +ADVA1AER9 INH
== END ==
LOC: M LAB REF 16:33
PROVIDERS: ATTEND Nurse Practitioner Adult Health
DX: Z98.84 Bariatric surgery status (principal)